=== PATIENT | male | born 1960 | race American Indian/Alaskan Native ===

== ENCOUNTER 2022-08-01 02:58 | Emergency (ER) | payer OTHER ==
[2022-08-01] MEDS: SODIUM CHLORIDE 0.9% 1000 ML 1,000 ML IV ONE ×2 (03:35→03:50)
[2022-08-01] MEDS ORDERED: cefTRIAXone/NS 1 GM/50 ML 1 GM/50 ML BAG IV ONE (03:53)
--- NOTE | 2022-08-01 03:59 | XRay Report ---
CHEST 1 VIEW INDICATION / CLINICAL INFORMATION: Altered Mental Status. COMPARISON: None available. FINDINGS: SUPPORT DEVICES: None. HEART / MEDIASTINUM: No significant abnormality. LUNGS / PLEURA: No significant pulmonary or pleural abnormality. No pneumothorax. Low lung volumes. ADDITIONAL FINDINGS: No significant additional findings. IMPRESSION: 1. Low lung volumes. No acute pulmonary disease. Signer Name: Silvia Lee MD Signed: 08/01/2022 3:55 AM Workstation Name: [id number]
[2022-08-01 04:28] LABS: Hematocrit 31.6 % (35.5-45.6); Hemoglobin 10.2 gm/dl (11.8-15.2); Mean Corpuscular HGB Conc 32 % (32-34); Mean Corpuscular Volume 86 fl (84-94); Platelet Count 155 K/mm3 (140-440); Red Blood Count 3.66 M/mm3 (3.65-5.03); Red Cell Distribution Width 16.6 % (13.2-15.2)
[2022-08-01] MEDS ORDERED: NORepinephrine/NS 8 MG-250 ML 8 MG/250 ML INFUS..BTL IV ONE (04:31)
[2022-08-01 04:33] LABS: Alanine Aminotransferase 16 units/L (7-56); Albumin 3.1 g/dL (3.9-5); Blood Urea Nitrogen 43 mg/dL (9-20); Calcium 8.6 mg/dL (8.4-10.2); Hemolysis Index 4
[2022-08-01 04:34] LABS: BUN/Creatinine Ratio 11
[2022-08-01 04:37] LABS: INR 1.34 (0.87-1.13)
[2022-08-01] MEDS ORDERED: NORepinephrine/NS 8 MG-250 ML 8 MG/250 ML INFUS..BTL IV SCH (05:00)
[2022-08-01 05:09] LABS: Basophils % (Manual) 0 % (0.0-1.8); Eosinophils % (Manual) 0 % (0.0-4.3); Total Cells Counted 100
[2022-08-01 05:10] LABS: RBC Morphology Normal
--- NOTE | 2022-08-01 05:18 | Emergency Department Report ---
ED General Adult HPI - General Chief complaint: Nausea/Vomiting/Diarrhea Stated complaint: NAUSEA AND VOMITING PUI?: No Time Seen by Provider: 08/01/22 03:24 Source: EMS Mode of arrival: Stretcher Limitations: No Limitations - History of Present Illness Initial comments: n/v and dizziness post lithotripsy yesterday pt with prostate cancer , has been feelingw eak with nausea since going home -: Gradual, hour(s) Severity scale (0 -10): 0 - Related Data Allergies Allergy/AdvReac Type Severity Reaction Status Date / Time No Known Allergies Allergy Unverified 08/01/22 03:31 ED Review of Systems ROS: Stated complaint: NAUSEA AND VOMITING Other details as noted in HPI Constitutional: denies: chills, fever Eyes: denies: eye pain, eye discharge, vision change ENT: denies: ear pain, throat pain Respiratory: denies: cough, shortness of breath, wheezing Cardiovascular: denies: chest pain, palpitations Endocrine: no symptoms reported Gastrointestinal: denies: abdominal pain, nausea, diarrhea Genitourinary: denies: urgency, dysuria Musculoskeletal: denies: back pain, joint swelling, arthralgia Skin: denies: rash, lesions Neurological: denies: headache, weakness, paresthesias Psychiatric: denies: anxiety, depression Hematological/Lymphatic: denies: easy bleeding, easy bruising ED Past Medical Hx - Past Medical History Previous Medical History?: No Hx Hypertension: No Hx CVA: No - Social History Smoking Status: Never Smoker ED Physical Exam - General Limitations: No Limitations General appearance: alert, other (weak and dry ) - Head Head exam: Present: atraumatic, normocephalic - Eye Eye exam: Present: normal appearance - ENT ENT exam: Present: mucous membranes moist - Neck Neck exam: Present: normal inspection - Respiratory Respiratory exam: Present: normal lung sounds bilaterally. Absent: respiratory distress - Cardiovascular Cardiovascular Exam: Present: normal rhythm, tachycardia. Absent: systolic murmur, diastolic murmur, rubs, gallop - GI/Abdominal GI/Abdominal exam: Present: soft, normal bowel sounds - Rectal Rectal exam: Present: deferred - Extremities Exam Extremities exam: Present: normal inspection - Back Exam Back exam: Present: normal inspection - Neurological Exam Neurological exam: Present: alert, oriented X3 - Psychiatric Psychiatric exam: Present: normal affect, normal mood - Skin Skin exam: Present: warm, dry, intact, normal color. Absent: rash ED Course Vital Signs 08/01/22 08/01/22 08/01/22 03:32 03:44 03:55 Temperature 97.4 F L Pulse Rate 106 H 110 H 111 H Respiratory 17 15 26 H Rate Blood Pressure 82/46 Blood Pressure 92/44 [Left] O2 Sat by Pulse 95 98 98 Oximetry 08/01/22 08/01/22 08/01/22 04:01 04:15 04:31 Temperature Pulse Rate 105 H 105 H 109 H Respiratory 20 24 19 Rate Blood Pressure 77/40 82/56 86/44 Blood Pressure [Left] O2 Sat by Pulse 97 95 65 L Oximetry 08/01/22 08/01/22 08/01/22 04:45 05:01 05:10 Temperature Pulse Rate 108 H 112 H 108 H Respiratory 17 24 18 Rate Blood Pressure 73/42 78/38 Blood Pressure 82/42 [Left] O2 Sat by Pulse 98 99 Oximetry 08/01/22 05:15 Temperature Pulse Rate 107 H Respiratory 18 Rate Blood Pressure 81/40 Blood Pressure [Left] O2 Sat by Pulse 99 Oximetry ED Medical Decision Making - Lab Data Result diagrams: 08/01/22 03:52 08/01/22 03:52 - Radiology Data Radiology results: report reviewed, image reviewed - Medical Decision Making sepsis work up 30 per kg fludis abx and pressors spoke with dr kemp over [place] for transfer to [facility] accepted by dr Boo , [facility] ICU Critical Care Time: Yes Critical care time in (mins) excluding proc time.: 65 Critical care attestation.: If time is entered above; I have spent that time in minutes in the direct care of this critically ill patient, excluding procedure time. ED Disposition Clinical Impression: Sepsis, Weakness, Leukocytosis Disposition: 51 HOSPICE/MEDICAL FACILITY Is pt being admited?: No Does the pt Need Aspirin: No Condition: Stable
[2022-08-01 06:57] LABS: RBC,Urine > 182.0 /HPF (0.0-6.0)
[2022-08-01 06:58] LABS: Color,Urine Yellow (Yellow); WBC,Urine > 182.0 /HPF (0.0-6.0)
--- NOTE | 2022-08-01 08:34 | Cat Scan Report ---
CT ABDOMEN AND PELVIS WITHOUT CONTRAST INDICATION / CLINICAL INFORMATION: pain. TECHNIQUE: Axial CT images were obtained through the abdomen and pelvis without IV contrast. All CT scans at this location are performed using CT dose reduction for ALARA by means of automated exposure control. COMPARISON: None available. FINDINGS: LOWER CHEST: Bibasilar bronchial wall thickening and subsegmental atelectasis, likely secondary to br onchitis/bronchiolitis. No lobar consolidation to suggest pneumonia. LIVER: No significant abnormality. GALLBLADDER/BILIARY: Hyperdense sludge and/or possible noncalcified stones within the gallbladder. No evidence for acute cholecystitis. PANCREAS: No significant abnormality. SPLEEN: No significant abnormality. ADRENALS: No significant abnormality. KIDNEYS/URETERS: Indwelling double-J right ureteral stent that appears appropriately positioned. Smal l right perinephric hematoma with a possible subcapsular component measuring 1 cm in thickness. Small volume hemorrhage also extends along the dependent right paracolic gutter. Small amount of present p ostoperative internal gas within the right renal collecting system. Large right renal stone measuring 1.4 cm in diameter and smaller right renal calculi. There is also a large left upper renal pole ston e. No ureteral calculus or hydronephrosis. GI: Mild wall thickening of the cecum and ascending colon, which is likely reactive secondary to surr ounding fluid and hemorrhage. No acute bowel inflammation is identified. No evidence for bowel ischem ia. APPENDIX: Not visualized. PERITONEUM: No pneumoperitoneum, free peritoneal fluid or loculated fluid collection. LYMPH NODES: No significant adenopathy. AORTA / ARTERIES: No significant abnormality. URINARY BLADDER: Mild diffuse wall thickening and internal gas, which is presumed postoperative in et iology. REPRODUCTIVE ORGANS: Dystrophic calcifications within the mildly enlarged prostate gland. SKELETAL SYSTEM: Lumbar degenerative spondylosis without acute or destructive osseous process. ADDITIONAL FINDINGS: None. IMPRESSION: 1. Small right perinephric hematoma with a possible subcapsular component and layering hemorrhage/flu id extending along the right paracolic gutter. Findings may be related to recent double-J right urete ral stent placement, which is appropriately positioned. Correlation with serial serum hematocrit leve ls recommended. 2. Bilateral nonobstructive nephrolithiasis. 3. Bibasilar bronchial wall thickening and subsegmental atelectasis, likely secondary to bronchitis/b ronchiolitis. 4. Other chronic incidental findings, as detailed above. Signer Name: Robb Hernandez MD Signed: 08/01/2022 8:29 AM Workstation Name: [email or web address]
[2022-08-01] MEDS ORDERED: ONDANSETRON 4 MG/2 ML INJ IV ONE ×2 (09:12→18:54)
[2022-08-01] MEDS ORDERED: MORPHINE 4 MG/1 ML INJ IV ONE ×3 (09:12→18:54)
--- NOTE | 2022-08-01 09:37 | Electrocardiograph Report ---
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
[2022-08-01] MEDS ORDERED: HYDROmorphone 1 MG/1 ML INJ IV ONE (13:26)
[2022-08-01 17:55] VITALS: BP 124/71
== END 2022-08-01 20:58 | disposition hospice, inpatient (51) ==
LOC: ED 02:58
DX: A41.9 Sepsis, unspecified organism (principal); D72.829 Elevated white blood cell count, unspecified; Z79.899 Other long term (current) drug therapy
CPT/HCPCS: 36415; 71045; 74176; 80053; 81001; 82010; 82140; 82550; 84484; 85007; 85025; 85610; 86140; 87040; 87086; 93005; 96365; 96367; 96375; 96376; 99291; J0696; J1170; J2270; J2354; J2405; 99285